=== PATIENT | male | born 1960 | race Caucasian/White ===

== ENCOUNTER → 2017-09-15 | Outpatient (CLI) | payer BC ==
[~2017-09-15] MED LIST: CATHETER FLUSH 10 ML SYR IV PRN; REGADENOSON 0.4 MG/5 ML SYR (LEXISCAN) IV ONE
[2017-09-15 09:01] VITALS: BP 134/68
--- NOTE | 2017-09-15 13:40 | STRESS TEST ---
DATE OF SERVICE: 09/15/2017 RESTING AND POST REGADENOSON TECHNETIUM-99M TETROFOSMIN SPECT CT IMAGING ORDERING PHYSICIAN: REJI CAREY MD, CESAR, FACP, FACC. PRIMARY PHYSICIAN: Dr. Armijo. CLINICAL DIAGNOSES: Shortness of breath, diabetes. Baseline images were carried out after injection of 10.13 mCi of technetium-99m tetrofosmin. This was followed by 0.4 mg regadenoson and 29.8 mCi of technetium-99m tetrofosmin for stress imaging. The electrocardiogram showed sinus rhythm at baseline. The electrocardiogram did not change significantly with the regadenoson infusion. Overall, he tolerated the procedure well. Review of images at rest and following stress does not indicate any significant perfusion defects consistent with significant myocardial ischemia or infarction. Gated images show normal global left ventricular systolic function with normal regional wall motion. Left ventricular ejection fraction is calculated to be 65%. Left ventricular end diastolic volume is 82 mL. TID is absent (1.02). CONCLUSIONS: 1. No evidence of significant myocardial ischemia or infarction on this study. 2. Normal regional wall motion. 3. Normal global left ventricular systolic function with a calculated ejection fraction of 65%. Job ID: [id number] DocumentID: [id number] Dictated Date: 09/15/2017 11:13:30 Senior Principal Date: 09/15/2017 13:40:14 Dictated By: REJI CAREY MD, CESAR, FACP, FACC,
== END ==
LOC: CARD 06:54
PROVIDERS: ATTEND Internal Medicine Cardiovascular Disease
DX: E11.9 Type 2 diabetes mellitus without complications (principal); R06.02 Shortness of breath; E66.8 Other obesity
CPT/HCPCS: 78452; 93017

== ENCOUNTER → 2022-03-30 | Outpatient (CLI) | payer BC ==
[~2022-03-30] VITALS: Ht 175 cm; Wt 103.0 kg
[~2022-03-30] MED LIST changes: -CATHETER FLUSH 10 ML SYR IV PRN; +CATHETER FLUSH 10 ML SYR IVP PRN
[2022-03-30 09:23] VITALS: BP 142/62
--- NOTE | 2022-03-31 15:12 | STRESS TEST ---
DATE OF SERVICE: 03/30/2022 RESTING AND POST REGADENOSON TECHNETIUM-99M TETROFOSMIN SPECT CT IMAGING ORDERING PHYSICIAN: Dr. Shipman. PRIMARY PHYSICIAN: Dr. Armijo. CLINICAL DIAGNOSIS: Chest discomfort. Baseline images were carried out after injection of 10.47 mCi of technetium-99m Tetrofosmin. This was followed by 0.4 mg regadenoson and 30.2 mCi of technetium-99m Tetrofosmin for stress imaging. The electrocardiogram showed sinus rhythm at baseline. It did not change significantly with the regadenoson infusion. The patient tolerated the procedure well. Review of images at rest and following stress does not indicate any significant perfusion defects consistent with significant myocardial ischemia or infarction. Gated images show normal global left ventricular systolic function with normal regional wall motion. Left ventricular ejection fraction is calculated to be 67%. CONCLUSIONS: 1. No evidence of any significant myocardial ischemia or infarction on this study. 2. Normal regional wall motion. 3. Normal global left ventricular systolic function with a calculated ejection fraction of 67%. Job ID: [id number] DocumentID: [id number] Dictated Date: 03/31/2022 12:47:23 Commercial Sales Manager Date: 03/31/2022 15:11:46 Dictated By: REJI SHIPMAN MD, MA, FACP, FACC,
== END ==
LOC: CARD 07:45
PROVIDERS: ATTEND Internal Medicine Cardiovascular Disease
DX: R07.89 Other chest pain (principal)
CPT/HCPCS: 78452; 93017; A9502